=== PATIENT | male | born 1985 | race Caucasian/White ===

== ENCOUNTER 2018-04-19 10:04 | Day surgery (SDC) | payer BC ==
[2018-04-18 12:46] VITALS: BMI 24.3
[2018-04-19] MEDS ORDERED: Midazolam 2 MG/2 ML VIAL ONE (12:36)
[2018-04-19] MEDS ORDERED: Lidocaine Hydrochloride 5 ML INJ ONE (12:37)
[2018-04-19] MEDS ORDERED: Propofol 10 mg/ml Inj (20 ML) ONE (12:37)
[2018-04-19 13:10] VITALS: TEMP 97.1
[2018-04-19 14:00] VITALS: BP 103/65; PULSE 55; RESP 15; O2SAT 99
== END 2018-04-19 13:58 | disposition home or self-care (01) ==
LOC: EDSEX 10:04 → C.ENDO 10:04
PROVIDERS: ATTEND Internal Medicine Gastroenterology
DX: R13.10 Dysphagia, unspecified (principal); K20.9 Esophagitis, unspecified; K29.70 Gastritis, unspecified, without bleeding
CPT/HCPCS: 43239; 88305; J2250; J2704; J3010